=== PATIENT | female | born 1990 | race Caucasian/White ===

== ENCOUNTER → 2017-10-23 | Emergency (ER) | payer MEDICAID, OTHER ==
[~2017-10-23] VITALS: Ht 172.7 cm; Wt 100.0 kg
[~2017-10-23] MED LIST: BENZ-16 PO; GUAI120015 PO; LORA-835 PO; MECL-111 PO; ONDA4TAB12 PO
[2017-10-23 12:40] VITALS: BP 126/75
== END | disposition home or self-care (01) ==
LOC: ER 11:39
DX: J06.9 Acute upper respiratory infection, unspecified (principal)
CPT/HCPCS: 99283

== ENCOUNTER 2018-09-09 21:29 | Emergency (ER) | payer MEDICAID, OTHER ==
[~2018-09-09] VITALS: Ht 170.2 cm; Wt 132.2 kg
[~2018-09-09 21:29] MED LIST changes: -BENZ-16 PO
[2018-09-09 21:59] VITALS: BP 172/100
== END 2018-09-09 22:59 | disposition home or self-care (01) ==
LOC: ER 21:29
DX: J02.9 Acute pharyngitis, unspecified (principal); Z79.899 Other long term (current) drug therapy
CPT/HCPCS: 87081; 87880; 99283

== ENCOUNTER 2018-10-26 10:28 | Emergency (ER) | payer MEDICAID ==
[~2018-10-26] VITALS: Ht 172.7 cm; Wt 118.2 kg
[2018-10-26 11:19] VITALS: BP 149/90
[2018-10-26] MEDS ORDERED: PENI500T2 PO (11:29)
== END 2018-10-26 11:44 | disposition home or self-care (01) ==
LOC: ER 10:28
DX: J02.0 Streptococcal pharyngitis (principal); H92.03 Otalgia, bilateral; R09.81 Nasal congestion
CPT/HCPCS: 99283

== ENCOUNTER 2021-12-14 11:23 | Emergency (ER) | payer MEDICAID ==
[~2021-12-14] VITALS: Ht 170.2 cm; Wt 122.7 kg
[~2021-12-14 11:23] MED LIST changes: -MECL-111 PO; +MECL-159 PO
[2021-12-14 11:39] VITALS: BP 149/97
== END 2021-12-14 13:26 | disposition home or self-care (01) ==
LOC: ER 11:23
DX: J02.9 Acute pharyngitis, unspecified (principal); R05.8 Other specified cough; Z79.899 Other long term (current) drug therapy
CPT/HCPCS: 87081; 87880; 99283